=== PATIENT | female | born 1960 | race Two or more races ===

== ENCOUNTER 2021-07-12 04:11 | Emergency (ER) | payer OTHER ==
[~2021-07-12] VITALS: Ht 157.5 cm; Wt 72.6 kg
[2021-07-12] MEDS ORDERED: TRENTAL PO (04:28)
== END 2021-07-12 15:50 | disposition home or self-care (01) ==
LOC: ER 04:11
DX: K52.89 Other specified noninfective gastroenteritis and colitis (principal)

== ENCOUNTER 2021-07-14 08:35 | Emergency (ER) | payer OTHER ==
[~2021-07-14] VITALS: Ht 157.5 cm; Wt 71.2 kg
[~2021-07-14 08:35] MED LIST: TRENTAL PO
== END 2021-07-14 12:08 | disposition home or self-care (01) ==
LOC: ER 08:35
DX: S29.9XXA Unspecified injury of thorax, initial encounter (principal); W18.30XA Fall on same level, unspecified, initial encounter; Y92.019 Unspecified place in single-family (private) house as the place of occurrence of the external cause

== ENCOUNTER 2024-05-12 08:22 | Outpatient (CLI) | payer OTHER | END 2024-05-12 08:25 | disposition home or self-care (01) | LOC: SONOGRAMA 08:22 | PROVIDERS: ATTEND Pathology Anatomic Pathology | DX: D34 Benign neoplasm of thyroid gland (principal); E07.89 Other specified disorders of thyroid; E04.1 Nontoxic single thyroid nodule ==